=== PATIENT | male | born 1935 | race Caucasian/White ===

== ENCOUNTER 2016-12-27 07:30 | Outpatient (RCR) | payer MEDICARE ==
[~2016-12-27 07:30] MED LIST: ATOR20TA PO; MECL12.518 PO; METO25TA60 PO; PHEN100C5 PO
--- NOTE | 2016-12-28 12:26 | PT/OT/ST INITIAL EVALUATION ---
Department of Health and Human Services Form Approved Health Care Financing Administration OMB No. [id number] PLAN OF CARE/ASSESSMENT FOR OUTPATIENT REHABILITATION (Complete for Initial Claims Only) 1. PATIENT'S NAME [facility] 2. ACC # [id number] 3. [facility] [id number] 4. PROVIDER NO. [id number] 5. TYPE: PT 6. PRIOR HOSPITALIZATION 7. PRIMARY DX Leg weakness 8. SECONDARY DX 9. ONSET DATE Worsening in the last 3 months 10. REFERRAL DATE 11. SOC. DATE 12/18/2016 12. TIME OF EVAL 11:01 a.m. 12. REFERRING PHYSICIAN 13. CHARGES/UNITS 14. G CODES 15. PRIOR LEVEL OF FUNCTION; PERTINENT HISTORY (Prior therapy results, reason for referral.) S: Reason for referral: Prior to therapy the patient did consent to today's evaluation and treatment. The patient is an 81-year-old male self-referring to physical therapy but under the direction of care of Dr. Joseph Carroll to address leg weakness. Several years ago the patient was working in the [employer] when he sustained an injury to the right orbit area resulting in a head injury as well. The patient did have issues with balance and dizziness following this where he underwent therapy with good results. The patient then was performing activities on his own to manage his condition including working out at a local gym. However the patient then underwent a final reconstructive surgery a few months ago and has noticed a decline since this. The patient states 10 days ago he did have a fall backwards slightly hitting his head but not injuring himself. The patient does state he has leg pain when he gets up and feels like he gets tired more easily than he should. The patient is able to go 3 minutes on the elliptical before needing a break. The patient states he takes his BP daily and it is running around 130/59. The patient additionally states he has had no appetite recently but he does drink supplemental drinks which have helped with his energy level. Prior level of function: Includes the patient working out at the fitness center regularly as well as helping his son in the [employer] work on the [employer] ([place] Current level of function: Currently the patient once again feels weakness when performing activities especially in the front of his legs. The patient states stairs are challenging for him as well but the most challenging thing is holding any position for very long as this significantly increases his weakness. Therapy history: Includes PT in the past with good results. Pain level: Patient states he does not have true pain however he describes the weakness sensation in his lower extremities as a weak pain. Obstacles to delivery of care: Those include left eye vision disturbances due to previous injury. Aggravating factors: Once again include any increased activity especially prolonged positions. Relieving factors: Rest for 2 to 3 seconds then he is able to resume the activity. Diagnostic testing: None at this time. 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 Current medications: Hypertension medication and Dilantin. Personal health rating: The patient does rate his overall and general health as excellent. Patient's Goal: The patient's goal for physical therapy is to have improved balance and endurance to be able to work out regularly and go work out in the [employer] without difficulty. 16. INITIAL ASSESSMENT/SAFETY PRECAUTIONS/MEDICAL COMPLICATIONS (Level of function at start of care. Be specific, use objective measures, list problems.) O: APPEARANCE, OBSERVATION AND GAIT: The patient presents as an older male in apparently healthy condition. He does ambulate with a wide base of support and is visibly compensating for lack of dorsiflexion strength using toe extensors. PALPATION: With palpation the patient does have significant increased tone and tightness throughout the toe extensors. SPECIAL TESTS: Included 6 minute walk test in which this patient was able to walk 1550 feet. With fatigue the patient did have increased left foot slap. The patient was able to perform narrow bases support with the eyes open for 30 second bilaterally although he did have increased excursion. With eyes closed he was unable to perform this task. Tandem with eyes open the patient was able to stand for 1 second with both right and left foot forward. The patient was able to perform shoulder stance with eyes closed for 6 seconds. OUTCOME ASSESSMENTS: A 6-minute walk test in which the patient walked 1550 feet. RANGE OF MOTION/FLEXIBILITY: Active range of motion dorsiflexion on the right is 2 degrees, on the left is lacking 10 degrees from neutral. STRENGTH: Throughout dorsiflexers on the right is 4/5 on the left 4-/5. Hip abduction 4-/5 on the right and 4-/5 on the left. Great toe extension is 4-/5 on the left and 4/5 on the right with pain. All other motions throughout bilateral lower extremities 4+/5 although prolonged holding did fatigue the patient easily. TODAY'S TREATMENT: Today's treatment following initial evaluation therapy to exercise was performed and issued as a home exercise program. 17. INITIAL POC: (Specify procedures, modalities, short and joint terminal attack controller goals) A: The patient presents at physical therapy with diagnoses of bilateral leg weakness with resultant decreased balance, decreased endurance and decreased active range of motion. PROGNOSIS: This patient does have a good prognosis with regular therapy attendance, complies with home exercise program. The patient is expected to benefit from physical therapy services or to have increased active range of motion, increased strength, increased balance for return to safe working in the [place]. FUNCTIONAL LIMITATIONS CODES: [id number] and [id number] PROBLEMS/IMPAIRMENTS/FUNCTIONAL LOSS: CONTRAINDICATIONS, PRECAUTIONS AND OBSTACLES TO DELIVERY OF CARE: INFORMED CONSENT: The diagnoses, prognosis and treatment plan with expected outcome were discussed with the patient. The patient did agree to today's establish plan of care. SHORT TERM GOALS: 1. The patient to be independent and compliant with home exercise program in 1 week. 2. The patient with active range of motion bilateral dorsiflexion at least 5 degrees in 3 weeks to allow full step length. 3. The patient with bilateral lower extremity strength 4+/5 throughout in 6 weeks to allow safe ambulation on uneven ground. 4. The patient with 6 minute walk test at least 1800 feet with no path deviation and no foot slap in 8 weeks to allow full safe community mobility. P: Plan to treat patient 2 times per week for 8 weeks in order to address bilateral lower extremity weakness. Therapeutic treatments to include manual therapy techniques as indicated, therapeutic exercising targeting active range of motion, strengthening, hip, knee and ankle stabilization activities. Gait training and balance and proprioception training and patient education and home exercise program to be advanced as warranted. 18. FREQUENCY 19. DURATION 20. FUNCTIONAL LEVEL (End of claim period) 21. PHYSICIAN SIGNATURE ? ON FILE OR ENTER HERE: 22. DATE: I certify the need for these services furnished under this plan of care and if for partial hospitalization. 23. CERTIFICATION FROM THROUGH FORM [id number]
== END 2016-12-31 11:10 | disposition home or self-care (01) ==
LOC: PT 07:30
PROVIDERS: ATTEND Family Medicine
DX: R29.898 Other symptoms and signs involving the musculoskeletal system (principal); M79.605 Pain in left leg; M79.604 Pain in right leg; Z98.890 Other specified postprocedural states
CPT/HCPCS: 97110; 97112; 97140; 97161; G8978; G8979